=== PATIENT | female | born 1985 | race Caucasian/White ===

== ENCOUNTER 2021-12-20 11:45 | Emergency (ER) | payer OTHER, SELFPAY ==
--- NOTE | ~2021-12-20 | XR_ITS ---
EXAMINATION: XR chest 2V EXAM DATE: 12/20/2021 12:06 INDICATION: Dry Cough, Post Covid . TECHNIQUE: Frontal and lateral projections of the chest obtained and reviewed. There is no prior lauryn dy for comparison. FINDINGS: Mild hyperinflation. The lungs are clear. There are no pleural effusions. The cardiomedi astinal silhouette is within normal limits. There is no pneumothorax suspected. The bones and soft tissues are unremarkable. IMPRESSION: Mild hyperinflation. Reviewed, dictated and finalized at location A. NESS PROCESS ANALYST IMPRESSION: Mild hyperinflation.
[2021-12-20 11:53] VITALS: BP 131/75; PULSE 80; RESP 16; TEMP 37.1; O2SAT 100
[2021-12-20 11:58] VITALS: BP 131/75; PULSE 80; RESP 16; TEMP 37.1; O2SAT 100
--- NOTE | 2021-12-20 11:59 | ED.URI ---
HPI - URI/Sore Throat General Chief Complaint: Upper Respiratory Infection Stated Complaint: covid related issues Time Seen by Provider: 12/20/21 11:59 Source: patient History of Present Illness HPI Narrative: PATIENT PRESENTS WITH A CONTINUED COUGH. PATIENT TESTED POSITIVE FOR COVID 19 ON 12/09/21 AND CONTINUES TO HAVE A DRY NON PRODUCTIVE COUGH. NO SHORTNESS OF BREATH AND NO CHEST PAIN. NORMALLY HEALTHY INDIVIDUAL. MD elicited complaint: cough Related Data Allergies Allergy/AdvReac Type Severity Reaction Status Date / Time Penicillins Allergy Mild Unknown Verified 12/20/21 11:57 amoxicillin Allergy Unknown Unknown Verified 12/20/21 11:57 Review of Systems Review of Systems: CONSTITUTIONAL: Denies fever, chills, or sweats. EYES: Denies visual changes, redness, or discharge. ENT: Denies rhinorrhea, congestion, sore throat, or otalgia. CARDIOVASCULAR: Denies chest pain, palpitations, or edema. RESPIRATORY: Denies cough or dyspnea. GASTROINTESTINAL: Denies abdominal pain, nausea, vomiting, or diarrhea. GENITOURINARY: Denies dysuria or hematuria. SKIN: Denies rash or itching. MUSCULOSKELETAL: Denies back pain, joint pain, or myalgia. NEUROLOGIC: Denies headache, numbness, or weakness. PSYCHIATRIC: Denies anxiety or depression. PMFSH Comments At time of signature, agree with nursing past medical, surgical, social and family history. There is no relevant family history pertinent to the presenting complaint Exam Narrative: GENERAL: Well-appearing, well-nourished, and in no acute distress. HEAD: Normocephalic, atraumatic. EYES: PERRLA and EOMI. ENT: Nares clear, no rhinorrhea or epistaxis. Mucous membranes moist. NECK: Supple. CHEST: Clear to auscultation. No respiratory distress. HEART: Regular rate and rhythm. No murmur heard. Normal peripheral pulses. ABDOMEN: Soft, nontender, nondistended, normal active bowel sounds. EXTREMITIES: Normal range of motion. No edema. SKIN: Warm, dry, no rash. NEURO: No focal deficits. Alert and oriented x3. [place] Coma Scale Eye Opening: Spontaneous 4 [place] Coma Scale Motor: Obeys Commands 6 [place] Coma Scale Verbal: Oriented 5 [place] Coma Scale Total 15 Course Course Level of Care: Express Care Visit Vital Signs Vital signs: Vital Signs Temperature 37.1 C 12/20/21 11:53 Pulse Rate 80 12/20/21 11:53 Respiratory Rate 16 12/20/21 11:53 Blood Pressure 131/75 12/20/21 11:53 Pulse Oximetry 100 12/20/21 11:53 Temperature 37.1 C 12/20/21 11:58 Pulse Rate 80 12/20/21 11:58 Respiratory Rate 16 12/20/21 11:58 Blood Pressure 131/75 12/20/21 11:58 Pulse Oximetry 100 12/20/21 11:58 Addressed elevated BP today. Today's blood pressure higher than recommended range. 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 Currently patient denies headache, dizziness, vision changes, CP or shortness of breath. Critical dx considered and discussed with pt. Educated patient on red flag s/s and to go to ED if s/s occur. Discussed with pt when to return to Express Care or primary care provider. Pt gave verbal undertstanding, all questions were answered, and pt was agreeable to plan MDM - URI/Sore Throat Differential Diagnosis Differential diagnosis: Likely upper respiratory infection, croup, otitis media, sinusitis, viral infection, bronchitis, influenza and pharyngitis Lab Data Lab results narrative: Mild hyperinflation. The lungs are clear. There are no pleural effusions. The cardiomediastinal silhouette is within normal limits. There is no pneumothorax suspected. The bones and soft tissues are unremarkable. IMPRESSION: Mild hyperinflation. Critical Care Time Critical Care Time Critical Care Time: No Discharge Plan Discharge Clinical Impression: Upper respiratory infection, Cough Patient Disposition: Home, Self-Care Condition: Stable Instructions: Antibiotic Form, Acute Bronchitis (ED),
== END 2021-12-20 12:25 | disposition home or self-care (01) ==
PROVIDERS: Emergency Provider Nurse Practitioner Family; PCP Internal Medicine
DX: J06.9 Acute upper respiratory infection, unspecified (principal); Z20.822 Contact with and (suspected) exposure to COVID-19
CPT/HCPCS: 71046; 99203; G0463

== ENCOUNTER 2022-10-13 08:33 | Emergency (ER) | payer OTHER, SELFPAY ==
--- NOTE | ~2022-10-13 | XR_ITS ---
EXAMINATION: XR chest 2V DATE: 10/13/2022 09:28 INDICATION: 3 weeks of cough and congestion TECHNIQUE: PA and lateral views of the chest were obtained. COMPARISON: Chest radiograph dated 12/20/2021 FINDINGS: The lungs remain clear with no focal airspace opacities, pulmonary edema, pleural effusion or pneumot horax. The cardiomediastinal silhouette is normal. Mild thoracic dextrocurvature. IMPRESSION: 1. No acute cardiopulmonary disease. Reviewed, dictated and finalized at location A. HETICS INSTRUCTOR
[2022-10-13 08:42] VITALS: BP 140/67; PULSE 81; RESP 14; TEMP 36.8; O2SAT 100
--- NOTE | 2022-10-13 09:13 | ED.URI ---
HPI - URI/Sore Throat General Chief Complaint: Upper Respiratory Infection Stated Complaint: chest cold Time Seen by Provider: 10/13/22 09:08 Source: patient and RN notes reviewed Mode of arrival: ambulatory Limitations: no limitations History of Present Illness HPI Narrative: 37-year-old female presents with concern for 3 week history of cough, chest congestion. She reports body aches, however she reports she has RA so she usually has body aches. She reports she has been taking Mucinex with little relief. She reports mid back pain with coughing. She reports runny nose, denies nasal congestion, sinus pressure MD elicited complaint: cough and sore throat Related Data Allergies Allergy/AdvReac Type Severity Reaction Status Date / Time Penicillins Allergy Mild Unknown Verified 10/13/22 09:02 amoxicillin Allergy Unknown Unknown Verified 10/13/22 09:02 Review of Systems Review of Systems: CONSTITUTIONAL: Reports malaise. Denies chills, sweats, or fever. EYES: Denies visual changes, redness, or discharge. ENT: Reports rhinorrhea. Denies congestion, sinus pain, otalgia and sore throat. CARDIOVASCULAR: Denies chest pain, palpitations, or edema. RESPIRATORY: Reports cough, chest congestion, back pain with coughing. Denies dyspnea. GASTROINTESTINAL: Denies abdominal pain, nausea, vomiting, diarrhea SKIN: Denies rash or itching. MUSCULOSKELETAL: Reports myalgia. NEUROLOGIC: Denies headache. All systems reviewed & are unremarkable except as noted in HPI and below [facility] Comments At time of signature, agree with nursing past medical, surgical, social and family history. There is no relevant family history pertinent to the presenting complaint Exam Narrative: GENERAL: Nontoxic. And in no acute distress. HEAD: Normocephalic EYES: PERRLA, conjunctivae clear ENT: Nares clear. Mucous membranes moist. TM pearly pineda with sharp light reflex bilaterally; no tragal tenderness. Oropharynx not erythematous without lesions. Tonsils not enlarged and without exudate, no drooling, no hoarseness, no trismus, uvula midline. NECK: Supple. No lymphadenopathy CHEST: Clear to auscultation, breath sounds equal. No wheezing, rhonchi, rales, or stridor. No respiratory distress, speaks in full sentences. Cough noted HEART: Regular rate and rhythm. No murmur heard. SKIN: Warm, dry, no rash. NEURO: Alert and oriented x3. PSYCH: Normal mood and affect Course Course Emergency Course: Patient is aware of diagnosis, understands and agrees to treatment plan. Anticipatory guidance given. Patient agrees to follow-up as directed and is aware of reasons to seek care at the emergency department. Portions of this record may have been created with voice recognition software Level of Care: Express Care Visit Vital Signs Vital signs: Vital Signs Temperature 98.3 F 10/13/22 08:42 Pulse Rate 81 10/13/22 08:42 Respiratory Rate 14 10/13/22 08:42 Blood Pressure 140/67 10/13/22 08:42 Pulse Oximetry 100 10/13/22 08:42 Oxygen Delivery Room Air 10/13/22 08:42 Temperature 98.3 F 10/13/22 08:42 Pulse Rate 81 10/13/22 08:42 Respiratory Rate 14 10/13/22 08:42 Blood Pressure 140/67 10/13/22 08:42 Pulse Oximetry 100 10/13/22 08:42 Oxygen Delivery Room Air 10/13/22 08:42 Reviewed. MDM - URI/Sore Throat MDM Narrative Medical decision making narrative: Differential diagnosis considered: Bearden virus, strep pharyngitis, allergic rhinitis, upper respiratory tract infection, sinusitis, rhinosinusitis, nasopharyngitis. viral pharyngitis, otitis media, otitis externa, pneumonia, bronchitis, viral cough syndrome, viral syndrome, and influenza. Exam findings show no acute concerns or changes; patient is non-toxic appearing and is in no distress. Patient is appropriate for outpatient treatment and follow-up. Lab Data Attestation: I reviewed the patient's lab results. Imaging Data My impression: Images reviewed, interpreted by radiologi
== END 2022-10-13 09:51 | disposition home or self-care (01) ==
PROVIDERS: Emergency Provider Nurse Practitioner
DX: J40 Bronchitis, not specified as acute or chronic (principal); M06.9 Rheumatoid arthritis, unspecified
CPT/HCPCS: 71046; 99213; G0463